=== PATIENT | female | born 1950 | race Caucasian/White ===

== ENCOUNTER → 2017-03-31 | Outpatient (CLI) | payer MEDICARE, OTHER ==
[~2017-03-31] MED LIST: FLEC50TA25 PO; LACT1CAP37 PO; LISI5TAB7 PO; METO-282 PO; METO25TA35 PO; MULT-516 PO; OMNIPAQUE 350 MG/ML, 100ML BOTTLE ONE; RIVA20TA PO; ROSU5TAB PO; VITAMIN D3 PO
== END | disposition home or self-care (01) ==
LOC: CFH 11:22
PROVIDERS: ATTEND Internal Medicine Cardiovascular Disease
DX: Z01.818 Encounter for other preprocedural examination (principal); I48.0 Paroxysmal atrial fibrillation; I10 Essential (primary) hypertension
CPT/HCPCS: 71020; 75572; 82565; Q9967

== ENCOUNTER 2017-04-02 06:22 | Inpatient (IN) | payer MEDICARE, OTHER ==
[2017-03-31 13:07] VITALS: BP 140/76
[2017-03-31 13:36] LABS: HEMATOCRIT 42.5 % (34.6-47.8); HEMOGLOBIN 14.1 g/dL (11.7-16.4)
[2017-03-31 13:47] LABS: ASPARTATE AMINO TRANSFERASE 18 U/L (15-37); BLOOD UREA NITROGEN 10 mg/dL (7-18)
[~2017-04-02] VITALS: Ht 167.6 cm; Wt 79.3 kg
[~2017-04-02 06:22] MED LIST changes: -METO-282 PO; -OMNIPAQUE 350 MG/ML, 100ML BOTTLE ONE
[2017-04-02] MEDS ORDERED: SODIUM CHLORIDE 0.9% 1,000 ML IV SCH (06:34)
[2017-04-02] MEDS ORDERED: METO-282 PO (06:51)
[2017-04-02] MEDS ORDERED: SODIUM CHLORIDE 0.9% 1,000 ML IV ONE (07:00)
[2017-04-02] MEDS ORDERED: PROTAMINE SULFATE 10 MG/ML, 5ML ONE (07:51)
[2017-04-02] MEDS ORDERED: HEPARIN 1,000 UNITS/ML, 10ML ONE (07:51)
[2017-04-02] MEDS ORDERED: FENTANYL PF 250 MCG/5ML ONE (07:53)
[2017-04-02] MEDS ORDERED: MIDAZOLAM 1 MG/ML, 5ML ONE (07:53)
[2017-04-02] MEDS ORDERED: SUCCINYLCHOLINE 20 MG/ML, 10ML ONE (08:04)
[2017-04-02] MEDS ORDERED: EPHEDRINE 50 MG/ML, 1ML ONE (08:04)
[2017-04-02] MEDS ORDERED: DEXAMETHASONE 4 MG/ML, 1ML ONE (08:04)
[2017-04-02] MEDS ORDERED: PROPOFOL 10 MG/ML, 20ML ONE (08:04)
[2017-04-02] MEDS ORDERED: ONDANSETRON 2MG/ML, 2ML ONE (08:04)
[2017-04-02] MEDS ORDERED: ROCURONIUM 10 MG/ML,10ML ONE (08:04)
[2017-04-02] MEDS ORDERED: LIDOCAINE 2%, 20ML ONE (08:15)
[2017-04-02] MEDS ORDERED: ZOLPIDEM 5MG TABLET PO PRN (11:30)
[2017-04-02] MEDS ORDERED: RIVAROXABAN 20 MG TABLET ONE (11:34)
[2017-04-02] MEDS ORDERED: OXYcodone 5 MG/5 ML ORAL.SOL UDC ONE (12:23)
[2017-04-02] MEDS ORDERED: HYDROmorphone 1 MG/ML, 1ML IV PRN (12:30)
[2017-04-02] MEDS ORDERED: ACETAMINOPHEN 325 MG TABLET PO PRN (12:30)
[2017-04-02] MEDS ORDERED: MEPERIDINE/PF 25MG/0.5ML IVPush PRN (12:30)
[2017-04-02] MEDS ORDERED: MIDAZOLAM 1 MG/ML, 2ML IV PRN (12:30)
[2017-04-02] MEDS ORDERED: ALBUTEROL SULFATE 2.5 MG/3 ML NPPB PRN (12:30)
[2017-04-02] MEDS ORDERED: PROMETHAZINE 25 MG/ML, 1ML IV PRN (12:30)
[2017-04-02] MEDS ORDERED: hydrALAzine 20 MG/ML, 1ML IV PRN (12:30)
[2017-04-02] MEDS ORDERED: ONDANSETRON 2MG/ML, 2ML IVPush PRN (12:30)
[2017-04-02] MEDS ORDERED: FENTANYL PF 100 MCG/2ML IV PRN (12:30)
[2017-04-02] MEDS: RIVAROXABAN 20 MG TABLET PO SCH (12:30)
[2017-04-02] MEDS ORDERED: OXYcodone 5 MG/5 ML ORAL.SOL UDC PO PRN (12:30)
[2017-04-02] MEDS ORDERED: LABETALOL 5MG/ML, 20ML IV PRN (12:30)
[2017-04-02 14:00] VITALS: BP 138/78
[2017-04-02] MEDS: ACETAMINOPHEN 325 MG TABLET PO PRN ×2 (15:38→20:15)
[2017-04-02 19:28] VITALS: BP 126/79
[2017-04-02] MEDS: SOTALOL 80MG TABLET PO SCH (20:10)
[2017-04-02] MEDS: ATORVASTATIN 10 MG TABLET PO SCH (20:10)
[2017-04-02] MEDS ORDERED: METOPROLOL SUCCINATE 25 MG TAB.ER.24H PO SCH (21:00)
[2017-04-03] MEDS: ACETAMINOPHEN 325 MG TABLET PO PRN ×4 (01:41→19:49)
[2017-04-03 02:10] VITALS: BP 106/66
[2017-04-03] MEDS ORDERED: SOTALOL 80MG TABLET PO SCH (06:00)
[2017-04-03 07:11] VITALS: BP 115/71
[2017-04-03] MEDS: SOTALOL 80MG TABLET PO SCH ×2 (08:19→19:49)
[2017-04-03] MEDS: LACTOBACILLUS CHEW TABLET PO SCH (08:19)
[2017-04-03] MEDS: MULTIVITAMIN 1 TABLET PO SCH (08:20)
[2017-04-03] MEDS: LISINOPRIL 5 MG TABLET PO SCH (08:20)
[2017-04-03] MEDS: RIVAROXABAN 20 MG TABLET PO SCH (08:20)
[2017-04-03 15:44] VITALS: BP 100/60
[2017-04-03 19:30] VITALS: BP 104/61
[2017-04-03] MEDS: ATORVASTATIN 10 MG TABLET PO SCH (19:49)
[2017-04-04 01:47] VITALS: BP 115/69
[2017-04-04] MEDS: LACTOBACILLUS CHEW TABLET PO SCH (07:39)
[2017-04-04] MEDS: SOTALOL 80MG TABLET PO SCH (07:39)
[2017-04-04] MEDS: MULTIVITAMIN 1 TABLET PO SCH (07:39)
[2017-04-04] MEDS: RIVAROXABAN 20 MG TABLET PO SCH (07:40)
[2017-04-04] MEDS: LISINOPRIL 5 MG TABLET PO SCH (07:40)
[2017-04-04] MEDS ORDERED: SOTA80TA18 PO (07:53)
[2017-04-04 08:08] VITALS: BP 145/80
== END 2017-04-04 10:00 | disposition home or self-care (01) | DRG 274 ==
LOC: CACL 06:22 → ORIP 11:19 → 5SO 13:39 → OBSVTOIN 04-03 08:40 → DCLOUNGE 04-04 09:45
PROVIDERS: ADMIT Internal Medicine Cardiovascular Disease; ATTEND Internal Medicine Cardiovascular Disease
PROC: 02573ZZ Destruction of Left Atrium, Percutaneous Approach (ICD-10-PCS; 2017-04-02)
PROC: B246ZZZ Ultrasonography of Right and Left Heart (ICD-10-PCS; 2017-04-02)
PROC: 02K83ZZ Map Conduction Mechanism, Percutaneous Approach (ICD-10-PCS; 2017-04-02)
PROC: 4A0234Z Measurement of Cardiac Electrical Activity, Percutaneous Approach (ICD-10-PCS; principal; 2017-04-02 08:00)
DX: I48.0 Paroxysmal atrial fibrillation (principal); D68.69 Other thrombophilia; E66.9 Obesity, unspecified; E78.00 Pure hypercholesterolemia, unspecified; I10 Essential (primary) hypertension; Z68.28 Body mass index [BMI] 28.0-28.9, adult; Z79.01 Long term (current) use of anticoagulants; Z87.891 Personal history of nicotine dependence; Z88.5 Allergy status to narcotic agent
CPT/HCPCS: 36415; 80053; 85025; 85347; 93005; 93306; 93312; 93321; 93325; 93613; 93656; 93662; C1732; C1766; C1893; C1894; G0378; J1100; J1644; J2250; J2405; J2704; J2720; J3010; J3490; C1730; C1759; J0330